=== PATIENT | male | born 1955 | race Caucasian/White ===

== ENCOUNTER 2024-09-16 09:55 | Emergency (ER) | payer MEDICARE, OTHER, SELFPAY ==
--- NOTE | 2024-09-16 10:06 | ED_ITS ---
HPI - URI/Sore Throat General Chief Complaint: Upper Respiratory Infection Stated Complaint: sinus infection/drainage Time Seen by Provider: 09/16/24 10:06 Source: patient, RN notes reviewed and old records reviewed Mode of arrival: ambulatory Limitations: no limitations History of Present Illness HPI Narrative: Patient presents with complaints of URI symptoms since yesterday. He reports that he feels as though he needs an antibiotic to treat his sinus infection . He reports runny nose, postnasal drainage, slight cough. Denies any fever, chills, sweats. Has not been taking anything for his symptoms. Related Data Home Medications ?Medication ?Instructions ?Recorded ?Confirmed ?Last Taken ?Type aspirin 81 mg tablet,delayed 81 mg PO DAILY 09/16/24 Unknown History release (Adult Low Dose Aspirin) atorvastatin 40 mg tablet (Lipitor) 40 mg PO DAILY 09/16/24 Unknown History fexofenadine 180 mg tablet 180 mg PO DAILY 09/16/24 Unknown History (Elena Allergy) fluticasone 100 mcg-salmeterol 50 1 inh inhalation DAILY 09/16/24 Unknown History mcg/dose blistr powdr for inhalation (Advair Diskus) fluticasone fur. 100 mcg-umeclid inhalation 09/16/24 Unknown History 62.5 mcg-vilant 25 mcg inhalat.powder (Trelegy Ellipta) fluticasone propionate 50 1 spray intranasal DAILY 09/16/24 Unknown History mcg/actuation nasal spray,suspension (24 Hour Allergy Relief) losartan 25 mg tablet mg 09/16/24 Unknown History montelukast 10 mg tablet mg 09/16/24 Unknown History turmeric 400 mg capsule mg PO 09/16/24 Unknown History Allergies Allergy/AdvReac Type Severity Reaction Status Date / Time No Known Allergies Allergy Verified 09/16/24 10:13 Review of Systems Review of Systems: All systems reviewed & are unremarkable except as noted in HPI and below Constitutional: Constitutional: Reports no additional constitutional complaints ENT: Reports system reviewed and no additional complaints, except as documented Cardiovascular: Cardiovascular: Reports no additional cardiovascular complaints Respiratory: Respiratory: Reports no additional respiratory complaints, Reports cough and Reports wheezing Gastrointestinal: Gastrointestinal: Reports no additional gastrointestinal complaints PMFSH Comments At the time of my signature, I reviewed and agree with the nursing past medical, surgical, social, and family history. There is no relevant family history pertinent to the patient complaint. Exam Const: General: cooperative, no acute distress, alert and awake Orientation/consciousness: oriented to person, oriented to place and oriented to time HENMT: Head: normal to inspection Resp: Effort & Inspection: normal respiratory effort and able to speak in complete sentences Auscultation: clear to auscultation bilaterally, no crackles, no rales, no rhonchi and no wheezes Cardio: Palpation: normal PMI Rate: regular rate Rhythm: regular rhythm Heart sounds: S1 normal heart sound present and S2 normal heart sound present Neuro: General: oriented to person, oriented to place and oriented to time Cranial nerves: Yes CN's II-XII intact bilaterally Psych: Appearance: grossly normal Thought process: Normal thought process present Insight: Good insight present (Psych) Judgement: Good judgement present (Psych) Course Course Level of Care: Express Care Visit Vital Signs Vital signs: Vital Signs Temperature 98.0 F 09/16/24 10:12 Pulse Rate 70 09/16/24 10:12 Respiratory Rate 18 09/16/24 10:12 Blood Pressure 140/77 09/16/24 10:12 Pulse Oximetry 97 09/16/24 10:12 Oxygen Delivery Room Air 09/16/24 10:12 Temperature 98.0 F 09/16/24 10:12 Pulse Rate 70 09/16/24 10:12 Respiratory Rate 18 09/16/24 10:12 Blood Pressure 140/77 09/16/24 10:12 Pulse Oximetry 97 09/16/24 10:12 Oxygen Delivery Room Air 09/16/24 10:12 Reviewed MDM - URI/Sore Throat MDM Narrative Medical decision making narrative: Negative COVID, negative flu. Symptoms only 1 day. Patient does have history asthma. Given reported symptoms will start with Medrol Dosepak. Patient advised to continue using inhalers as prescribed. He is nontoxic appearing in no distress. Stable for discharge home. Discharge instructions reviewed with patient, as well as provided in writing per nursing staff. The instructions also include specific and strict return/GO TO THE ER as well as f/u information. All questions have been answered, and the patient deny any further questions with discharge and discharge plan. Some parts of this dictation were generated by voice recognition software and may contain typographical and/or grammatical inaccuracies. Differential Diagnosis Differential diagnosis: Likely upper respiratory infection, croup, otitis media, sinusitis, viral infection and bronchitis Medical Records Attestation: I reviewed the patient's medical records. Lab Data Attestation: I reviewed the patient's lab results. Labs: Lab Results 09/16/24 Range/Units 10:36 POC Influenza A Ag Negative (Negative) POC Influenza B Ag Negative (Negative) Discharge Plan Discharge Clinical Impression: Asthma exacerbation Qualifiers: Asthma severity: unspecified severity Asthma persistence: unspecified Qualified Code(s): J45.901 - Unspecified asthma with (acute) exacerbation Patient Disposition: Home, Self-Care Condition: Stable Instructions: Antibiotic Form, Asthma (ED) Patient Language: [place] Prescriptions: New methylprednisolone [Medrol (Royce)] 4 mg tablets,dose pack 4 mg PO DAILY Qty: 21 0RF No Action Trelegy Ellipta 100-62.5-25 mcg blister with device INHALATION atorvastatin [Lipitor] 40 mg tablet 40 mg PO DAILY losartan 25 mg tablet fluticasone propionate [24 Hour Allergy Relief] 50 mcg/actuation spray,suspension 1 spray intranasal DAILY Rx Instructions: administer into each nostril montelukast 10 mg tablet aspirin [Adult Low Dose Aspirin] 81 mg tablet,delayed release (DR/EC) 81 mg PO DAILY fluticasone propion-salmeterol [Advair Diskus] 100-50 mcg/dose blister with device 1 inh inhalation DAILY fexofenadine [Elena Allergy] 180 mg tablet 180 mg PO DAILY turmeric 400 mg capsule PO Follow-up/Referrals: UNKNOWN,DOCTOR [Primary Care Provider] - Time of Disposition: 10:37
[2024-09-16 10:12] VITALS: BP 140/77; PULSE 70; RESP 18; TEMP 36.7; O2SAT 97
[2024-09-16 10:38] LABS: EDINFLUASCREEN Negative (Negative); EDINFLUBSCREEN Negative (Negative)
== END 2024-09-16 10:41 | disposition home or self-care (01) ==
PROVIDERS: Emergency Provider Nurse Practitioner Family
DX: J45.901 Unspecified asthma with (acute) exacerbation (principal); I10 Essential (primary) hypertension; E78.00 Pure hypercholesterolemia, unspecified
CPT/HCPCS: 87804; 99203; G0463